=== PATIENT | female | born 1965 ===

== ENCOUNTER 2017-04-17 08:39 | Emergency (ER) | payer MEDICAID ==
[2017-04-17 08:39] VITALS: BMI 25.9
--- NOTE | 2017-04-17 09:10 | ED PDOC ---
HPI: General Adult Time Seen by Provider: 04/17/17 08:50 Chief Complaint (Nursing): Flu-like Symptoms Chief Complaint (Provider): Flu-like symptoms History Per: Patient History/Exam Limitations: no limitations Onset/Duration Of Symptoms: Days (x2) Current Symptoms Are (Timing): Still Present Additional Complaint(s): Alta Garnica is a 51 year old female, with no past medical history, who presents to the emergency department complaining of fever, chills and body aches associated with mild sore throat and mild headache onset for 2 days. Patient denies any rash, vomiting, diarrhea, neck or abdominal pain. No further medical complaints. PMD: None provided. Past Medical History Reviewed: Historical Data, Nursing Documentation, Vital Signs Vital Signs: Last Vital Signs Temp 98.6 F 04/17/17 14:22 Pulse 78 04/17/17 14:22 Resp 18 04/17/17 14:22 BP 120/78 04/17/17 14:22 Pulse Ox 98 04/17/17 14:22 - Surgical History Surgical History: - Family History Family History: States: Unknown Family Hx - Social History Current smoker - smoking cessation education provided: No Alcohol: None Drugs: Denies - Home Medications Home Medications: Ambulatory Orders Medication Instructions Recorded Amoxicillin/Clavulanate [Augmentin 1 tab PO BID #20 tab 04/08/16 875 MG-125 MG] Ibuprofen [Motrin] 600 mg PO Q8 PRN #21 tab 04/08/16 Promethazine/Codeine 5 ml PO Q12 PRN #100 ml 04/08/16 [Codeine/Promethazine 10 MG/5 Ml-6.25 MG/5 Ml] Pseudoephedrine [Sudafed Tab] 1 tab PO Q6 PRN #24 tab 04/08/16 Ibuprofen [Motrin Tab] 600 mg PO Q6 PRN #15 tab 04/17/17 levoFLOXacin [Levaquin] 750 mg PO DAILY #7 tab 04/17/17 - Allergies Allergies/Adverse Reactions: Allergies Allergy/AdvReac Type Severity Reaction Status Date / Time No Known Allergies Allergy Verified 04/17/17 08:51 Review of Systems ROS Statement: Except As Marked, All Systems Reviewed And Found Negative Constitutional: Positive for: Fever, Malaise, Other (body aches) Gastrointestinal: Negative for: Vomiting, Abdominal Pain, Diarrhea Musculoskeletal: Negative for: Neck Pain Skin: Negative for: Rash Neurological: Positive for: Headache Physical Exam - Physical Exam Appears: Positive for: Non-toxic, Uncomfortable Head Exam: Positive for: ATRAUMATIC, NORMAL INSPECTION, NORMOCEPHALIC Skin: Positive for: Normal Color, Warm, Dry Eye Exam: Positive for: EOMI, Normal appearance, PERRL ENT: Positive for: Pharyngeal Erythema (mild) Neck: Positive for: Normal, Painless ROM, Supple Cardiovascular/Chest: Positive for: Regular Rate, Rhythm. Negative for: Murmur Respiratory: Positive for: Normal Breath Sounds. Negative for: Respiratory Distress Gastrointestinal/Abdominal: Positive for: Normal Exam, Bowel Sounds, Soft. Negative for: Tenderness, Guarding, Rebound Back: Positive for: Normal Inspection. Negative for: L CVA Tenderness, R CVA Tenderness Extremity: Positive for: Normal ROM. Negative for: Pedal Edema, Deformity, Swelling Neurologic/Psych: Positive for: Alert, Oriented - Laboratory Results Result Diagrams: 04/17/17 09:25 04/17/17 09:25 - ECG O2 Sat by Pulse Oximetry: 98 (RA) Pulse Ox Interpretation: Normal Medical Decision Making Medical Decision Making: Initial impression: flu-like symptoms Initial Plan: --VBG Shock Panel --Comp Metabolic Panel --CBC w/ differential --Chest two views (PA/LAT) [RAD] --Tylenol 975 mg PO --Toradol 30 mg IV --NS IV 1,000 ml @ 1,000 mls/hr --Influenza A B --Urinalysis --reevaluation labs and cxr reviewed possible pneumonia Abx initiated [facility] residents to obtain followup appt to assure improvement Was stable for outpatient therapy given no tachycardia, normal SPO2 and no dyspnea in ED Scribe Attestation: Documented by Neri Sauceda, acting as a scribe for Noé Wilson MD Provider Scribe Attestation: All medical record entries made by the Scribe were at my direction and personally dictated by me. I have reviewed the chart and agree that the record accurately reflects my personal performance of the history, physical exam, medical decision making, and the department course for this patient. I have also personally directed, reviewed, and agree with the discharge instructions and disposition. Disposition - Clinical Impression Clinical Impression: Pneumonia - Patient ED Disposition Is Patient to be Admitted: No Counseled Patient/Family Regarding: Studies Performed, Diagnosis, Need For Followup, Rx Given - Disposition Referrals: [facility] [Outside] Disposition: Routine/Home Disposition Time: 12:30 Condition: STABLE Additional Instructions: See Dr Greene friday 04/20 at 2pm in the clinic. Return to ER for any worsening symptoms. Take medications as directed. You will need a repeat chest xray in 10 days to assure resolution of your pneumonia. Prescriptions: Ibuprofen [Motrin Tab] 600 mg PO Q6 PRN #15 tab PRN Reason: Pain, Moderate (4-7) levoFLOXacin [Levaquin] 750 mg PO DAILY #7 tab Instructions: Bacterial Pneumonia (ED) Forms: Prior Knowledge (Yakut)
[2017-04-17] MEDS: Sodium Chloride 0.9% 1,000 ML IV STA (09:18)
[2017-04-17 09:33] LABS: BASO % 0.7 % (0.0-2.0); HEMATOCRIT 41.1 % (34.0-47.0); LYMPH # 0.9 K/uL (1.0-4.3); LYMPH % 13.6 % (20.0-40.0); MEAN CELL VOLUME 88.8 fl (81.0-99.0); MEAN CORPUSCULAR HEMOGLOBIN 30.5 pg (27.0-31.0); MEAN CORPUSCULAR HGB CONC 34.3 g/dL (33.0-37.0); MEAN PLATELET VOLUME 7.6 fl (7.2-11.7); MONO # 0.4 K/uL (0.0-0.8); NEUT # 5.4 K/uL (1.8-7.0); NEUT % 79.7 % (50.0-75.0); RED CELL DISTRIBUTION WIDTH 13.8 % (11.5-14.5); WHITE BLOOD COUNT 6.8 K/uL (4.8-10.8)
[2017-04-17 09:35] LABS: VENOUS BLOOD GAS BASE EXCESS 2.3 mmol/L (0.0-2.0); VENOUS BLOOD GAS PCO2 39 mmHg (40-60); VENOUS BLOOD PH 7.44 (7.32-7.43)
[2017-04-17 09:36] LABS: URINE BILIRUBIN NEGATIVE (NEGATIVE); URINE BLOOD SMALL (NEGATIVE); URINE COLOR YELLOW (YELLOW); URINE GLUCOSE (UA) NEG (Normal); URINE KETONE NEGATIVE (NEGATIVE); URINE LEUKOCYTE ESTERASE NEG Leu/uL (Negative); URINE PROTEIN NEGATIVE (NEGATIVE); WBC URINE 3 /hpf (0-5)
--- NOTE | 2017-04-17 09:43 | RAD ---
HISTORY: COMPARISON: 12/01/2012 TECHNIQUE: Chest PA and lateral FINDINGS: LINES AND TUBES: None. LUNG AND PLEURA: The lungs are well inflated. There is discoid airspace disease in the right perihilar region. The left lung is clear. HEART AND MEDIASTINUM: The heart is not enlarged. The hilar and mediastinal contours are within normal limits. SKELETAL STRUCTURES: The bony structures are within normal limits for the patient's age. VISUALIZED UPPER ABDOMEN: Normal. OTHER FINDINGS: None. IMPRESSION: Discoid airspace disease in the right perihilar region could represent atelectasis or pneumonia. Follow-up after medical management is recommended to ensure complete resolution.
[2017-04-17 09:49] LABS: ALB/GLOB RATIO 1.1 (1.0-2.1); ALKALINE PHOSPHATASE 95 U/L (38-126); ALT/SGPT 40 U/L (9-52); AST/SGOT 29 U/L (14-36); BILIRUBIN,TOTAL 0.5 mg/dl (0.2-1.3); BLOOD UREA NITROGEN 10 mg/dl (7-17); CALCIUM 9.4 mg/dL (8.4-10.2); CARBON DIOXIDE 25 mmol/L (22-30); CHLORIDE 104 mmol/L (98-107); GFR AFRICAN-AMERICAN > 60; GLUCOSE,RANDOM 123 mg/dL (65-105); POTASSIUM 3.9 MMOL/L (3.6-5.0); SODIUM 138 mmol/l (132-148); TOTAL PROTEIN 8.2 G/DL (6.3-8.2)
[2017-04-17] MEDS ORDERED: Azithromycin 500 MG IV IVPB ONE (11:00)
[2017-04-17] MEDS ORDERED: cefTRIAXone IV 1 gm in Dextros 50 ML IVPB ONE (11:00)
[2017-04-17] MEDS: cefTRIAXone IV 1 gm in Dextros 50 ML IVPB STA (11:16)
[2017-04-17 12:57] VITALS: PULSE 78; RESP 18; O2SAT 98
[2017-04-17 14:23] VITALS: BP 120/78; TEMP 98.6
== END 2017-04-17 14:23 | disposition home or self-care (01) ==
LOC: H.ER 08:39
DX: J18.9 Pneumonia, unspecified organism (principal)
CPT/HCPCS: 71020; 80053; 81003; 81025; 82803; 85025; 87040; 87070; 87430; 87804; 96374; 96375; 99285; J0696; J1885; J7040